=== PATIENT | female | born 1940 | race Caucasian/White ===

== ENCOUNTER → 2017-05-20 | Outpatient (CLI) | payer MEDICARE ==
--- NOTE | 2017-05-20 09:48 | PCVCIMAG ---
APPROVED REPORT Study performed: 05/20/2017 08:19:30 EXAM: Comprehensive 2D, Doppler, and color-flow Echocardiogram Patient Location: Echo lab Other Information Study Quality: Adequate Indications Dyspnea. Cough Wheezing. Edema. 2D Dimensions IVSd: 7.94 (7-11mm)LVOT Diam: 19.38 (18-24mm) LVDd: 47.70 mm LVPWs: 27.38 mm PWd: 9.01 (7-11mm)Ascending Ao: 32.91 (22-36mm) LVDs: 33.05 (25-40mm) Left Atrium: 27.62 (27-40mm) LV Single Plane 4CH: 57.40 % LV Single Plane 2CH: 62.84 %Powers's LVEF: 60.12 % Biplane EF: 61.3 % Volumes Left Atrial Volume (Systole) Single Plane 4CH: 24.78 mLSingle Plane 2CH: 33.25 mL Aortic Valve AoV Peak Андрей.: 1.10 m/s AO Peak Gr.: 4.83 mmHgLVOT Max P.88 mmHg LVOT Max V: 0.85 m/s COREY Vmax: 2.28 cm2 Mitral Valve E/A Ratio: 0.9 MV Decel. Time: 259.94 ms MV E Max Андрей.: 0.56 m/s MV A Андрей.: 0.65 m/s IVRT: 148.79 ms Pulmonary Valve PV Peak Gr.: 1.89 mmHg Pulmonary Vein P Vein S: 0.55 m/sP Vein A: 0.35 m/s P Vein D: 0.37 m/sP Vein A Dur.: 103.8 msec P Vein S/D Ratio: 1.49 Tricuspid Valve TR Peak Андрей.: 2.58 m/s TR Peak Gr.: 26.53 mmHg Left Ventricle The left ventricle is normal size. There is normal LV segmental wall motion. There is normal left ventricular wall thickness. Left ventricular systolic function is normal. The left ventricular ejection fraction is within the normal range. LVEF is 55-60%. Grade I diastolic dysfunction Right Ventricle The right ventricle is normal size. The right ventricular systolic function is normal. Atria The left atrium size is normal. The right atrium size is normal. Aortic Valve The aortic valve is normal in structure. No aortic regurgitation is present. There is no aortic valvular stenosis. Mitral Valve The mitral valve is normal in structure. There is no mitral valve regurgitation noted. No evidence of mitral valve stenosis. Tricuspid Valve The tricuspid valve is normal in structure. Mild tricuspid regurgitation. Pulmonary artery pressure is 34mmhg. Pulmonic Valve The pulmonary valve is normal in structure. There is no pulmonic valvular regurgitation. Great Vessels The aortic root is normal in size. IVC is normal in size and collapses with >50% inspiration Pericardium There is no pericardial effusion. <Conclusion> Left ventricular systolic function is normal. There is normal LV segmental wall motion. LVEF is 55-60%. Grade I diastolic dysfunction The aortic valve is normal in structure. No aortic regurgitation or stenosis The mitral valve is normal in structure. No mitral valve regurgitation noted. Mild tricuspid regurgitation. Pulmonary artery pressure is 34mmhg. There is no pericardial effusion.
== END | disposition home or self-care (01) ==
LOC: PCVCIMAG 08:08
PROVIDERS: ATTEND Internal Medicine
DX: I07.1 Rheumatic tricuspid insufficiency (principal); J81.1 Chronic pulmonary edema
CPT/HCPCS: 93306